=== PATIENT | female | born 1990 | race Caucasian/White ===

== ENCOUNTER → 2021-02-08 | Outpatient (CLI) | payer OTHER | LOC: HEART CORB 13:00 | DX: I50.22 Chronic systolic (congestive) heart failure (principal); I42.0 Dilated cardiomyopathy | CPT/HCPCS: 93306 ==

== ENCOUNTER 2021-05-28 17:22 | Emergency (ER) | payer OTHER ==
[2021-05-28 19:06] LABS: HEMOGLOBIN 16.4 gm/dl (12.3-15.3); RED BLOOD COUNT 5.54 M/UL (4.00-5.10); WHITE BLOOD COUNT 17.4 K/UL (4.5-11.0)
[2021-05-28 19:42] LABS: BUN/CREATININE RATIO 19 (0-10)
[2021-05-29] MEDS ORDERED: POTASSIUM CHLO20 ME1 PO (02:17)
[2021-05-29] MEDS ORDERED: PHENERGAN 25 MG25 M1 PO (02:17)
== END 2021-05-29 04:20 | disposition home or self-care (01) ==
LOC: ER1 17:22
PROVIDERS: Physician Assistant
DX: O99.281 Endocrine, nutritional and metabolic diseases complicating pregnancy, first trimester (principal); O99.891 Other specified diseases and conditions complicating pregnancy; R07.89 Other chest pain; R10.13 Epigastric pain; R10.12 Left upper quadrant pain; E87.6 Hypokalemia; Z20.822 Contact with and (suspected) exposure to COVID-19; O16.1 Unspecified maternal hypertension, first trimester; O99.411 Diseases of the circulatory system complicating pregnancy, first trimester; I11.0 Hypertensive heart disease with heart failure; I43 Cardiomyopathy in diseases classified elsewhere; O99.331 Smoking (tobacco) complicating pregnancy, first trimester; Z3A.01 Less than 8 weeks gestation of pregnancy; Z88.1 Allergy status to other antibiotic agents
CPT/HCPCS: 36600; 71045; 80053; 81001; 82550; 82553; 82803; 83690; 83874; 83880; 84484; 85025; 85379; 87086; 93005; 96365; 96375; 96376; 99285; C9113; J2270; J2550; J2765; Q9967; U0002

== ENCOUNTER 2021-06-28 17:49 | Emergency (ER) | payer OTHER ==
[~2021-06-28 17:49] MED LIST: PHENERGAN 25 MG25 M1 PO; POTASSIUM CHLO20 ME1 PO
[2021-06-28 20:23] LABS: HEMOGLOBIN 17.1 gm/dl (12.3-15.3); RED BLOOD COUNT 5.59 M/UL (4.00-5.10)
[2021-06-28 20:48] LABS: BUN/CREATININE RATIO 22 (0-10)
== END 2021-06-29 | disposition left against medical advice (07) ==
LOC: ER1 17:49
PROVIDERS: Physician Assistant
DX: O99.281 Endocrine, nutritional and metabolic diseases complicating pregnancy, first trimester (principal); E87.6 Hypokalemia; E87.1 Hypo-osmolality and hyponatremia; E87.8 Other disorders of electrolyte and fluid balance, not elsewhere classified; O99.331 Smoking (tobacco) complicating pregnancy, first trimester; F17.200 Nicotine dependence, unspecified, uncomplicated; Z88.5 Allergy status to narcotic agent; Z88.6 Allergy status to analgesic agent; Z3A.13 13 weeks gestation of pregnancy
CPT/HCPCS: 80053; 81001; 82550; 82553; 83690; 84484; 85025; 93005; 96374; 99283; J2550

== ENCOUNTER 2021-07-20 12:23 | Inpatient (IN) | payer OTHER ==
[~2021-07-20] VITALS: Ht 170.2 cm; Wt 74.4 kg
[2021-07-20] MEDS ORDERED: METOCLOPRAMIDE10 MG PO (13:21)
[2021-07-20] MEDS ORDERED: VITAMIN B-625 MG PO (13:21)
[2021-07-20] MEDS ORDERED: ASPIRIN81 MG PO (13:22)
[2021-07-20] MEDS ORDERED: PROAIR HFA8.5 GM INH (13:22)
[2021-07-20] MEDS ORDERED: ALBUTEROL2.5 MG/3 M INH (13:23)
[2021-07-20 15:06] LABS: HEMOGLOBIN 13.4 gm/dl (12.3-15.3); RED BLOOD COUNT 4.44 M/UL (4.00-5.10); WHITE BLOOD COUNT 7.9 K/UL (4.5-11.0)
[2021-07-20 17:41] LABS: BUN/CREATININE RATIO 28 (0-10)
--- NOTE | 2021-07-21 05:41 | NUR ---
PATIENT DENIES EMESIS THIS SHIFT.
[2021-07-21 08:15] LABS: HIV AB/P24 AG SCREEN Non Reactive (Non Reactive)
[2021-07-21 10:15] LABS: RPR Non Reactive (Non Reactive)
[2021-07-21 12:15] LABS: HBSAG SCREEN Negative (Negative); HCV ANTIBODY <0.1 (0.0-0.9)
[2021-07-21 21:20] LABS: URINE TOTAL PROTEIN 19 mg/dl
--- NOTE | 2021-07-22 05:00 | NUR ---
Patient consumed 1/2 of ham sandwich and fluids. Patient denies emesis this shift.
--- NOTE | 2021-07-22 14:40 | NUR ---
OB STAFF NURSE CAME TO PATIENT'S ROOM AND AUSCULTATED HEART TONES. OB STAFF NURSE STATED THAT HEART RATE WAS 140. PATIENT VERBALIZED THAT SHE WAS HAVING CHEST PAIN. RN NOTIFIED DR. PEREZ AND ASKED IF CARDIAC LABS AND EKG COULD BE OBTAINED. VERBALIZED YES AND ORDERED RN TO PUT IN A CARDIAC CONSULT IF NOT ALREADY IN. RN CALLED DR. LARKIN AND SHE SAID DR. MORRELL HAD ALREADY SIGNED OFF BUT THEIR PA WOULD BE UP TO ASSESS HER. RN NOTIFIED PATIENT ON PLAC OF CARE. PATIENT VERBALIZED UNDERSTANDING.
[2021-07-23 08:13] LABS: BUN/CREATININE RATIO 15 (0-10)
[2021-07-24 07:37] LABS: BUN/CREATININE RATIO 16 (0-10)
[2021-07-24] MEDS ORDERED: BISACODYL10 MG PR (09:45)
[2021-07-24] MEDS ORDERED: PHENERGAN 25 MG25 M1 PO (09:45)
[2021-07-24] MEDS ORDERED: PROVENTIL HFA6.7 GM INH (09:45)
[2021-07-24] MEDS ORDERED: LABETALOL HCL100 MG PO (09:45)
[2021-07-24] MEDS ORDERED: SERTRALINE HCL50 MG PO (09:45)
[2021-07-24] MEDS ORDERED: ONDANSETRON HCL4 MG PO (09:45)
[2021-07-24] MEDS ORDERED: SEREVENT DISKU50 MCG INH (09:45)
[2021-07-24] MEDS ORDERED: CHLORPROMAZINE25 MG PO (09:45)
[2021-07-24] MEDS ORDERED: ASMANEX HFA13 GM INH (09:45)
[2021-07-24] MEDS ORDERED: ASPIRIN81 MG PO (09:45)
[2021-07-24] MEDS ORDERED: TAPAZOLE 10 MG10 MG PO (09:45)
[2021-07-24] MEDS ORDERED: PEPCID20 MG PO (09:46)
== END 2021-07-24 10:45 | disposition home or self-care (01) | DRG 831 ==
LOC: GENOP 12:23 → M/S 12:30
PROVIDERS: Obstetrics & Gynecology; ADMIT Obstetrics & Gynecology
PROC: B24BZZZ Ultrasonography of Heart with Aorta (ICD-10-PCS; principal; 2021-07-20)
DX: O21.1 Hyperemesis gravidarum with metabolic disturbance (principal); E43 Unspecified severe protein-calorie malnutrition; O99.412 Diseases of the circulatory system complicating pregnancy, second trimester; I42.9 Cardiomyopathy, unspecified; J45.901 Unspecified asthma with (acute) exacerbation; O99.332 Smoking (tobacco) complicating pregnancy, second trimester; F17.210 Nicotine dependence, cigarettes, uncomplicated; O99.891 Other specified diseases and conditions complicating pregnancy; Z20.822 Contact with and (suspected) exposure to COVID-19; E05.90 Thyrotoxicosis, unspecified without thyrotoxic crisis or storm; O99.512 Diseases of the respiratory system complicating pregnancy, second trimester; J45.909 Unspecified asthma, uncomplicated; E88.09 Other disorders of plasma-protein metabolism, not elsewhere classified; E86.0 Dehydration; E87.6 Hypokalemia; O99.612 Diseases of the digestive system complicating pregnancy, second trimester; Z3A.16 16 weeks gestation of pregnancy; Z88.8 Allergy status to other drugs, medicaments and biological substances; Z79.899 Other long term (current) drug therapy; Z82.49 Family history of ischemic heart disease and other diseases of the circulatory system; I25.2 Old myocardial infarction; Z83.3 Family history of diabetes mellitus; Z68.25 Body mass index [BMI] 25.0-25.9, adult
CPT/HCPCS: ECHO; 36415; 76705; 80053; 82150; 82550; 82553; 83690; 83735; 84132; 84156; 84439; 84443; 84480; 84484; 85025; 86592; 86762; 86803; 86850; 86900; 86901; 87086; 87340; 87389; 93005; 93306; 94640; 94664; 94760; 96374; 96375; 96376; G0378; J2270; J2405; J2550; J3480

== ENCOUNTER 2021-07-25 11:24 | Emergency (ER) | payer OTHER ==
[~2021-07-25 11:24] MED LIST changes: +ALBUTEROL2.5 MG/3 M INH; +ASMANEX HFA13 GM INH; +ASPIRIN81 MG PO; +BISACODYL10 MG PR; +CHLORPROMAZINE25 MG PO; +LABETALOL HCL100 MG PO; +METOCLOPRAMIDE10 MG PO; +ONDANSETRON HCL4 MG PO; +PEPCID20 MG PO; +PROAIR HFA8.5 GM INH; +PROVENTIL HFA6.7 GM INH; +SEREVENT DISKU50 MCG INH; +SERTRALINE HCL50 MG PO; +TAPAZOLE 10 MG10 MG PO; +VITAMIN B-625 MG PO
[2021-07-25 12:12] LABS: HEMOGLOBIN 13.7 gm/dl (12.3-15.3); RED BLOOD COUNT 4.45 M/UL (4.00-5.10); WHITE BLOOD COUNT 11.4 K/UL (4.5-11.0)
[2021-07-25 12:37] LABS: BUN/CREATININE RATIO 13 (0-10)
== END 2021-07-25 17:08 ==
LOC: ER1 11:24
PROVIDERS: Emergency Medicine
DX: O21.0 Mild hyperemesis gravidarum (principal); O99.612 Diseases of the digestive system complicating pregnancy, second trimester; K80.20 Calculus of gallbladder without cholecystitis without obstruction; O99.891 Other specified diseases and conditions complicating pregnancy; K92.0 Hematemesis; O99.331 Smoking (tobacco) complicating pregnancy, first trimester; I50.9 Heart failure, unspecified; F17.200 Nicotine dependence, unspecified, uncomplicated; Z3A.16 16 weeks gestation of pregnancy; Z88.1 Allergy status to other antibiotic agents; Z88.5 Allergy status to narcotic agent; Z88.6 Allergy status to analgesic agent
CPT/HCPCS: 80053; 81001; 83690; 84702; 85025; 85610; 85730; 93005; 96374; 96375; 96376; 99285; J2270; J2405